=== PATIENT | female | born 1940 | race Caucasian/White ===

== ENCOUNTER 2017-11-13 08:00 | Outpatient (CLI) | payer MEDICARE, OTHER | END 2017-11-13 08:01 | disposition home or self-care (01) | LOC: LAB.R 08:00 | PROVIDERS: ATTEND Nurse Practitioner Primary Care | DX: N39.0 Urinary tract infection, site not specified (principal) | CPT/HCPCS: 87086; 87181 ==

== ENCOUNTER 2018-01-02 09:31 | Outpatient (CLI) | payer MEDICARE, OTHER ==
[~2018-01-02 09:31] MED LIST: GADOBUTROL 7.5 MMOL/7.5 ML VIAL ONE
[2018-01-02] MEDS ORDERED: GADOBUTROL 7.5 MMOL/7.5 ML VIAL IVP ONE (10:09)
--- NOTE | 2018-01-03 08:42 | MRI Report ---
Procedure Date: 01/02/2018 Accession Number: [id number] / [id number] Procedure: MRI - Lumbar Spine W/WO CPT Code: FULL RESULT: EXAM: MRI LUMBAR SPINE WITHOUT AND WITH CONTRAST EXAM DATE: 01/02/2018 10:38 AM. CLINICAL HISTORY: Prior lumbar spine surgery, persistent symptoms. Back and lower leg pain. COMPARISONS: None. TECHNIQUE: Multiplanar, multisequence T1-weighted and fluid-sensitive sequences of the lumbar spine from T12 to S1 before and after administration of intravenous contrast. Other: None. IV contrast: Without and with 6 mm Gadavist. FINDINGS: Spinal Canal: The conus terminates at T12-L1. Unremarkable appearance of the partially visualized caudal thoracic cord and conus. Alignment: Abnormal alignment. 1 cm residual anterolisthesis of L4 on L5 after posterior fusion. Minimal retrolisthesis of L1 on L2, L2 on L3 and L3 on L4. Bone Marrow: Five [id number] lumbar vertebral bodies are assumed. No acute vertebral body collapse or acute marrow edema. Chronic type II degenerative endplate signal changes at L5-S1. Disk Levels/Facets: T12-L1: Unremarkable. L1-L2: Mild chronic degenerative changes without evidence for significant stenosis. L2-L3: Mild to moderate degenerative disk disease and mild facet arthropathy. Circumferential disk bulge. Mild foraminal stenosis. No significant central stenosis or focal nerve root compression. Mild degenerative changes at the L2 and L3 spinous process articulations. L3-L4: Moderate degenerative disk disease and moderate to severe facet arthropathy. Marginal spurring and a circumferential disk bulge with extension laterally into both foramina. Mild central canal and lateral recess stenosis. Moderate bilateral foraminal stenosis. L4-L5: There are findings of previous diskectomy and disk space fusion, posterior surgical decompression and posterior L4-L5 omero and screw fusion. Susceptibility artifact from posterior pedicle screws bilaterally at L4 and L5. Central canal/thecal sac narrowing and deformity from residual malalignment without evidence for residual high-grade central canal narrowing. Right greater than left residual foraminal deformity and narrowing contributed to also by residual subluxation. No evidence for focal disk extrusion. L5-S1: Prominent chronic degenerative disk disease. Minimal facet arthropathy. Patent central canal. Minimal to mild foraminal narrowing. Spinal Canal: No enhancing masses within the spinal canal. No epidural abscess. Musculature: Mild to moderate diffuse fatty atrophy and T2 hyperintense signal changes in the region of previous surgery, not unexpected postoperative sequelae. Other: The visualized retroperitoneum is unremarkable. IMPRESSION: 1. 1 cm residual L4 on L5 anterolisthesis where there are findings of previous anterior and posterior fusions and dorsal decompression with residual narrowing and deformity of the foramina and central canal as described above. 2. Additional multilevel lumbar degenerative changes are present as described above, most notable at L3-L4 and L5-S1. 3. No abnormal focal fluid collection or evidence for active infection or focal tumor mass. Comment: The following findings are so common in adults without low back pain that while we report their presence, they must be interpreted with caution and in the context of the clinical situation. (Reference Anthonyvik et al, Spine 2001) Prevalence of findings in patients without low back pain: Disk degeneration (any evidence): 92% Disk desiccation/T2 signal loss: 83% Disk height loss: 56% Disk bulge: 64% Disk protrusion: 32% Annular tear/high intensity zone: 38% RADIA
== END 2018-01-02 09:32 | disposition home or self-care (01) ==
LOC: DI 09:31
PROVIDERS: ATTEND Orthopaedic Surgery
DX: M51.36 Other intervertebral disc degeneration, lumbar region (principal); M47.896 Other spondylosis, lumbar region; M51.37 Other intervertebral disc degeneration, lumbosacral region; M47.897 Other spondylosis, lumbosacral region; M43.16 Spondylolisthesis, lumbar region; Z98.1 Arthrodesis status
CPT/HCPCS: 72158; A9585

== ENCOUNTER 2018-03-25 13:48 | Emergency (ER) | payer MEDICARE, OTHER ==
[2018-03-25 14:10] VITALS: BP 123/68
--- NOTE | 2018-03-25 16:05 | ED Physician Documentation ---
History of Present Illness - Stated complaint Stated Complaint: RT LEG PX/SWELLING - Chief complaint Chief Complaint: Ext Problem - Additonal information Additional information: 77-year-old female presents the emergency department with ongoing right leg pain. The patient has had ongoing symptoms for the past several months and is seen numerous doctors for this pain. Today the patient reports increasing right calf pain and she is concerned that she may have a blood clot. The patient denies chest pain, shortness of breath. The patient denies pain in her hip, knee or ankle. Symptoms are described as moderate. No radiation of the pain. No triggering factors. Review of Systems Constitutional: denies: Fever, Fatigue Eyes: denies: Discharge Ears: denies: Ear pain Nose: denies: Congestion Cardiac: denies: Chest pain / pressure Respiratory: denies: Dyspnea Musculoskeletal: reports: Extremity pain. denies: Neck pain, Joint swelling Neurologic: denies: Generalized weakness, Numbness Immunocompromised: denies: Chemotherapy PD PAST MEDICAL HISTORY - Past Medical History Past Medical History: Yes Cardiovascular: Hypertension, High cholesterol Respiratory: Sleep apnea Neuro: TIA Endocrine/Autoimmune: HyPOthyroidism GI: None : None HEENT: None Psych: Depression, Anxiety Musculoskeletal: Osteoarthritis Derm: None - Past Surgical History Past Surgical History: Yes General: Colonoscopy Ortho: Other /PROFILE TRIMMER: Hysterectomy HEENT: Cataracts - Present Medications Home Medications: Ambulatory Orders Medication Instructions Recorded Confirmed Aspirin 325 mg PO DAILY 07/08/14 03/25/18 Bisoprolol Fumarate/Hctz 1 tab PO DAILY 07/08/14 03/25/18 [Bisoprolol-Hctz 10-6.25 mg Tab] Citalopram [CeleXA] 20 mg PO DAILY 07/08/14 03/25/18 DULoxetine [Cymbalta] 30 mg PO DAILY 07/08/14 03/25/18 Diclofenac Potassium [Zipsor] 75 mg PO DAILY 07/08/14 03/25/18 Levothyroxine [Synthroid] 50 mcg PO DAILY 07/08/14 03/25/18 Simvastatin 10 mg PO DAILY 07/08/14 03/25/18 Zolpidem [Ambien] 10 mg PO DAILY 07/08/14 03/25/18 Mupirocin Calcium [Bactroban] 1 applic TP BID #15 g 11/29/15 03/25/18 - Allergies Allergies/Adverse Reactions: Allergies Allergy/AdvReac Type Severity Reaction Status Date / Time No Known Drug Allergies Allergy Verified 07/08/14 07:28 - Social History Does the pt smoke?: No Smoking Status: Never smoker Does the pt drink ETOH?: Yes Does the pt have substance abuse?: No - Immunizations Immunizations are current?: Yes PD ED PE NORMAL - General General: Alert and oriented X 3, No acute distress - HEENT HEENT: Atraumatic, PERRL, EOMI, Ears normal - Neck Neck: Supple, no meningeal sign - Cardiac Cardiac: RRR, Strong equal pulses - Respiratory Respiratory: No respiratory distress, Clear bilaterally - Derm Derm: Normal color - Extremities Extremities: No deformity, Normal ROM s pain, No edema. No: No tenderness to palpate (The patient has full active range of motion of bilateral hips, knees and ankles. The patient has tenderness to palpation in her right calf. The patient has no tenderness in her left calf. There is no swelling that I can appreciate on examination. The patient has equal temperature bilaterally. The patient has equal dorsalis pedis pulses. The patient has normal cap refill bilaterally there is no erythematous) - Neuro Neuro: Alert and oriented X 3, Normal speech - Psych Psych: Normal mood Results - Vitals Vitals: Vital Signs - 24 hr 03/25/18 14:05 Temperature 36.2 C L Heart Rate 112 H Respiratory 16 Rate Blood Pressure 123/68 O2 Saturation 100 Oxygen O2 Source Room air - Labs Labs: Laboratory Tests 03/25/18 15:55 Sodium 129 L Potassium 3.1 L Chloride 91 L Carbon Dioxide 29 Anion Gap 9.0 BUN 16 Creatinine 0.8 Estimated GFR (MDRD) 70 L Glucose 98 Calcium 9.1 Total Creatine Kinase 74 - Rads (name of study) US Duplex Radiology: Final report received PD MEDICAL DECISION MAKING - ED course ED course: The patient's ultrasound showed no evidence of DVT. On clinical exam there is no evidence of an acute arterial thrombus, infectious etiology or bony injury. The patient currently appears appropriate for discharge and ongoing outpatient management. The patient symptoms may be related to her lower potassium. The patient appears appropriate for dietary management of her low potassium and sodium. I discussed the findings with the patient and the plan she understands and agrees. I recommended that the patient should follow-up with her primary care for ongoing workup and evaluation of her symptoms. I discussed warning signs and recommended returning to the emergency department immediately for any worsening or concerns. Departure - Departure Disposition: 01 Home, Self Care Clinical Impression: Hypokalemia Pain in extremity Qualifiers: Extremity pain location: lower leg Laterality: right Qualified Code(s): M79.661 - Pain in right lower leg Condition: Good Instructions: ED Muscle Aching, ED Diet High Potassium Follow-Up: Jake Campo MD [Primary Care Provider] - Within 3 Days Comments: Please return to the emergency department for worsening symptoms or any concerns.
[2018-03-25 16:13] LABS: CALCIUM 9.1 mg/dL (8.5-10.3); CREATININE 0.8 mg/dL (0.4-1.0)
[2018-03-25] MEDS ORDERED: POTASSIUM CHLORIDE 20 MEQ TABLET PO STA (16:58)
--- NOTE | 2018-03-25 17:33 | Ultrasound Report ---
Reason: leg pain Procedure Date: 03/25/2018 Accession Number: [id number] / [id number] Procedure: US - Duplex Ext Veins Right CPT Code: FULL RESULT: EXAM: RIGHT LOWER EXTREMITY VENOUS ULTRASOUND EXAM DATE: 03/25/2018 04:38 PM. CLINICAL HISTORY: Right leg pain. COMPARISON: None. TECHNIQUE: Real-time sonographic vascular imaging was performed by the ict managers through the lower extremity utilizing both color-flow and Doppler spectral analysis. Multiple termite control representative static images were saved for review. FINDINGS: Common Femoral Vein (CFV): Normal. CFV-GSV Junction: Normal. Profunda Femoral Vein (PFV): Normal. Femoral Vein (FV) Prox: Normal. Femoral Vein (FV) Mid: Normal. Femoral Vein (FV) Dist: Normal. Popliteal Vein: Normal. Posterior Tibial Veins: Normal. Peroneal Veins: Normal. IMPRESSION: No evidence for deep venous thrombosis. RADIA
== END 2018-03-25 17:48 | disposition home or self-care (01) ==
LOC: ED 13:48
DX: E87.6 Hypokalemia (principal); M79.661 Pain in right lower leg; I10 Essential (primary) hypertension; E78.00 Pure hypercholesterolemia, unspecified; E03.9 Hypothyroidism, unspecified; Z79.82 Long term (current) use of aspirin; Z86.73 Personal history of transient ischemic attack (TIA), and cerebral infarction without residual deficits
CPT/HCPCS: 36415; 80048; 82550; 93971; 99282; 99283; A9270

== ENCOUNTER 2019-02-28 15:11 | Emergency (ER) | payer MEDICARE, OTHER ==
[2019-02-28] MEDS ORDERED: TETANUS/DIPHTHERIA/PERTUSSIS 0.5 ML SYRINGE IM ONE (15:35)
--- NOTE | 2019-02-28 15:37 | ED Physician Documentation ---
PD HPI UPPER EXT INJURY - Stated complaint Stated Complaint: FINGER LACERATION - Chief complaint Chief Complaint: Laceration - History obtained from History obtained from: Patient, Family - History of Present Illness Location: Left, Finger (index finger) Type of injury: Laceration Where injury occurred: Home Timing - onset: How many hours ago (1) Timing - duration: Hours (1) Timing - details: Abrupt onset Pain level max: 3 Pain level now: 2 Improved by: Rest Worsened by: Moving, Palpating Contributing factors: No: Anticoagulated - Additonal information Additional information: Patient accidentally lacerated the tip of the left index finger with a pair of scissors today. She is right-handed. Unknown last tetanus shot Review of Systems Constitutional: denies: Fever, Chills GI: denies: Vomiting Skin: denies: Rash Musculoskeletal: denies: Neck pain, Back pain Neurologic: denies: Headache PD PAST MEDICAL HISTORY - Past Medical History Past Medical History: Yes Cardiovascular: Hypertension, High cholesterol Respiratory: Sleep apnea Neuro: TIA Endocrine/Autoimmune: HyPOthyroidism GI: None : None HEENT: None Psych: Depression, Anxiety Musculoskeletal: Osteoarthritis Derm: None - Past Surgical History Past Surgical History: Yes General: Colonoscopy Ortho: Other /MECHANICAL INTERN: Hysterectomy HEENT: Cataracts - Present Medications Home Medications: Ambulatory Orders Medication Instructions Recorded Confirmed Aspirin 325 mg PO DAILY 07/08/14 03/25/18 Bisoprolol/Hydrochlorothiazide 1 tab PO DAILY 07/08/14 03/25/18 [Bisoprolol-Hctz 10-6.25 mg Tab] Citalopram [CeleXA] 20 mg PO DAILY 07/08/14 03/25/18 DULoxetine [Cymbalta] 30 mg PO DAILY 07/08/14 03/25/18 Diclofenac Potassium [Zipsor] 75 mg PO DAILY 07/08/14 03/25/18 Levothyroxine [Synthroid] 50 mcg PO DAILY 07/08/14 03/25/18 Simvastatin 10 mg PO DAILY 07/08/14 03/25/18 Zolpidem [Ambien] 10 mg PO DAILY 07/08/14 03/25/18 Mupirocin Calcium [Bactroban] 1 applic TP BID #15 g 11/29/15 03/25/18 - Allergies Allergies/Adverse Reactions: Allergies Allergy/AdvReac Type Severity Reaction Status Date / Time No Known Drug Allergies Allergy Verified 02/28/19 15:21 - Social History Does the pt smoke?: No Smoking Status: Never smoker Does the pt drink ETOH?: Yes Does the pt have substance abuse?: No - Immunizations Immunizations are current?: Yes PD ED PE NORMAL - Vitals Vital signs reviewed: Yes - General General: Alert and oriented X 3, No acute distress - HEENT HEENT: Moist mucous membranes - Derm Derm: Warm and dry - Extremities Extremities: Other (L hand - 1 cm laceration to the index finger. Flap. Superficial. Neurovascularly intact. No bony or tendon injury. ) - Neuro Neuro: Alert and oriented X 3 Results - Vitals Vitals: Vital Signs - 24 hr 02/28/19 15:19 Temperature 36.7 C Heart Rate 113 H Respiratory 18 Rate Blood Pressure 153/78 H O2 Saturation 98 Oxygen O2 Source Room air Procedures - Laceration (location) L index finger Length in cm: 1 Wound type: Flap Neurovascular status: Sensory intact, Motor intact, Vascular intact Tendon involvement: Tendon intact Wound Preparation: Irrigated copiously NS Skin layer closure: Dermabond Other: Patient tolerated well, No complications, Neurovascular intact, Tetanus booster given (tdap) Complexity: Simple PD MEDICAL DECISION MAKING - ED course Complexity details: considered differential, d/w patient ED course: 78-year-old female the left index finger laceration. Repaired with Dermabond. Tdap given. Warnings of infection and instructions on wound care given at bedside. Also counseled on how to minimize scarring. Patient counseled regarding signs and symptoms for which I believe and urgent re-evaluation would be necessary. Patient with good understanding of and agreement to plan and is comfortable going home at this time This document was made in part using voice recognition software. While efforts are made to proofread this document, sound alike and grammatical errors may occur. Departure - Departure Disposition: 01 Home, Self Care Clinical Impression: Finger laceration Qualifiers: Encounter type: initial encounter Finger: index finger Damage to nail status: without damage Foreign body presence: without foreign body Laterality: left Qual ified Code(s): S61.211A - Laceration without foreign body of left index finger without damage to nail, initial encounter Condition: Good Instructions: ED Laceration Ext Skin Glue Follow-Up: your,doctor as needed [Other] Comments: Keep the wound clean. Do not apply any ointments as this may dissolve the glue. Return if you worsen. Return especially for redness, swelling or drainage from the wound.
[2019-02-28 16:06] VITALS: BP 147/73
== END 2019-02-28 16:05 | disposition home or self-care (01) ==
LOC: ED 15:11
DX: S61.211A Laceration without foreign body of left index finger without damage to nail, initial encounter (principal); W27.2XXA Contact with scissors, initial encounter; Y93.89 Activity, other specified; Y92.009 Unspecified place in unspecified non-institutional (private) residence as the place of occurrence of the external cause; Z23 Encounter for immunization; I10 Essential (primary) hypertension; Z79.82 Long term (current) use of aspirin
CPT/HCPCS: 12001; 90471